=== PATIENT | female | born 1945 | race Caucasian/White ===

== ENCOUNTER 2020-05-23 15:10 | Inpatient (IN) | payer MEDICARE, OTHER ==
[~2020-05-23] VITALS: Ht 165.1 cm; Wt 74.0 kg
[~2020-05-23 15:10] MED LIST: Hair, Skin & N1 EACH PO; IBUP600 PO; LEVSOD75 PO; MAGCHL64ER; Percocet 5-3251 EACH PO; Valium5 MG PO
[2020-05-23 16:24] LABS: Hematocrit 38.5 % (33.0-51.0); Hemoglobin 12.6 g/dL (11.5-16.0); Mean Corpuscular HGB 27.8 pg (26.0-34.0); Mean Corpuscular HGB Conc 32.7 g/dL (31.5-36.5); Mean Corpuscular Volume 85 fL (80-100); Mean Platelet Volume 9.9 fL (9.1-12.4); NRBC ABSOLUTE 0.05 K/mm3 (0.00-0.02); NRBC Auto 0.2 /100 WBC (0.0-0.2); Platelet Count 676 K/mm3 (150-400); RDW Coefficient Variation 16.9 % (11.7-14.2); RDW Standard Deviation 51.9 fL (35.1-46.3); Red Blood Cell Count 4.53 M/mm3 (3.80-5.20); White Blood Cell Count 27.61 K/mm3 (4.00-11.30)
[2020-05-23 16:38] LABS: International Normalized Ratio 1.17; Prothrombin Time Results 12.4 Sec (9.7-11.5)
[2020-05-23 16:54] LABS: Alanine Aminotransfer (ALT/SGP 118 U/L (12-78); Albumin, Blood 3.4 g/dL (3.4-5.0); Albumin/Globulin Ratio 1.3 (0.8-1.8); Alk Phos 63 U/L (50-136); Anion Gap 6 mmol/L (6-16); Aspartate Aminotrans (AST/SGOT 134 U/L (12-37); Bilirubin, Total 0.4 mg/dL (0.1-1.0); Blood Urea Nitrogen 21 mg/dL (8-24); Bun/Creatinine Ratio 22.4 (12.0-20.0); CO2, Blood 25 mmol/L (21-32); Calcium, Blood 8.1 mg/dL (8.5-10.1); Chloride, Blood 106 mmol/L (98-108); Creatinine, Blood 0.94 mg/dL (0.40-1.00); Ethanol (Alcohol), Blood, Med <3 mg/dL; Globulin, Blood 2.7 g/dL (2.2-4.0); Glomerular Filtration Rate >60 (60-); Glucose, Blood 133 mg/dL (70-99); Potassium, Blood 3.7 mmol/L (3.5-5.5); Sodium, Blood 137 mmol/L (136-145); Total Protein, Blood 6.1 g/dL (6.4-8.2)
[2020-05-23 17:21] LABS: BAND PERCENT MAN 9 % (0-8); BASOPHILS ABSOLUTE MAN 0.27 K/mm3 (0.00-0.23); BASOPHILS PERCENT MAN 1 % (0-2); EOSINOPHILS ABSOLUTE MAN 0.27 K/mm3 (0.00-0.68); EOSINOPHILS PERCENT MAN 1 % (0-6); LYMPHOCYTES ABSOLUTE MAN 1.38 K/mm3 (0.84-5.20); LYMPHOCYTES PERCENT MAN 5 % (21-46); METAMYELOCYTE ABSOLUTE MAN 0.27 K/mm3 (0.00-0.00); METAMYELOCYTE PERCENT MAN 1 % (0-0); MONOCYTES PERCENT MAN 4 % (4-13); NEUTROPHILS ABSOLUTE MAN 24.29 K/mm3 (1.96-9.15); SEG NEUTROPHILS PERCENT MAN 79 % (41-73); TOTAL CELLS COUNTED 100
[2020-05-23] MEDS ORDERED: SERT100 PO (17:29)
[2020-05-23] MEDS ORDERED: blood pressure PO (17:30)
[2020-05-23] MEDS ORDERED: LEVSOD100 PO (17:30)
[2020-05-23 23:01] LABS: Source, Urine Clean Catch
[2020-05-23 23:04] LABS: Bilirubin, Urine Neg (Neg); Blood, Urine 1+ (Neg); Glucose Qualitative, Urine Neg (Neg); Ketones, Urine 1+ (Neg); Leukocyte Esterase, Urine 1+ (Neg); Nitrite, Urine Neg (Neg); Protein, Urine 3+ (Neg); Specific Gravity, Urine 1.015 (1.003-1.022); Urobilinogen, Urine NORM (Normal)
[2020-05-23 23:08] LABS: Color, Urine Yellow (P-Yellow)
[2020-05-23 23:14] LABS: Appearance, Urine Clear (Clear); Bacteria Few /hpf; Red Blood Cells, Urine Rare /hpf (0-2); Squamous Epithelial Cells Not Seen /hpf (Few)
[2020-05-23 23:15] LABS: U Amphetamine Screen Not Detected; U Barbituate Screen Not Detected; U Benzodiazapine Screen Not Detected; U Buprenorphine Screen Not Detected; U Cannabinoids Screen Not Detected; U Cocaine Screen Not Detected; U Methadone Screen Not Detected; U Methamphetamine Screen Not Detected; U Opiates Screen DETECTED; U Oxycodone Screen Not Detected; U Phencyclidine Screen Not Detected; U Propoxyphene Screen Not Detected
[2020-05-24 07:48] LABS: BASOPHILS PERCENT AUTO 1 % (0-2); EOSINOPHILS ABSOLUTE AUTO 0.03 K/mm3 (0.00-0.68); EOSINOPHILS PERCENT AUTO 0 % (0-6); Hematocrit 31.9 % (33.0-51.0); Hemoglobin 10.5 g/dL (11.5-16.0); IMMATURE GRAN ABSOLUTE AUTO 0.51 K/mm3 (0.00-0.10); IMMATURE GRAN PERCENT AUTO 2 % (0-1); LYMPHOCYTES ABSOLUTE AUTO 0.99 K/mm3 (0.84-5.20); LYMPHOCYTES PERCENT AUTO 3 % (21-46); MONOCYTES ABSOLUTE AUTO 2.17 K/mm3 (0.16-1.47); MONOCYTES PERCENT AUTO 6 % (4-13); Mean Corpuscular HGB 28.1 pg (26.0-34.0); Mean Corpuscular HGB Conc 32.9 g/dL (31.5-36.5); Mean Corpuscular Volume 85 fL (80-100); NEUTROPHILS ABSOLUTE AUTO 29.87 K/mm3 (1.96-9.15); NEUTROPHILS PERCENT AUTO 88 % (41-73); NRBC ABSOLUTE 0.03 K/mm3 (0.00-0.02); NRBC Auto 0.1 /100 WBC (0.0-0.2); Platelet Count 914 K/mm3 (150-400); RDW Coefficient Variation 17.2 % (11.7-14.2); RDW Standard Deviation 53.7 fL (35.1-46.3); Red Blood Cell Count 3.74 M/mm3 (3.80-5.20); White Blood Cell Count 33.87 K/mm3 (4.00-11.30)
[2020-05-24 07:58] LABS: Bun/Creatinine Ratio 17.6 (12.0-20.0); Calcium, Blood 7.8 mg/dL (8.5-10.1); Creatinine, Blood 1.7 mg/dL (0.40-1.00); Potassium, Blood 5.2 mmol/L (3.5-5.5)
[2020-05-24 08:44] LABS: Albumin, Blood 3.1 g/dL (3.4-5.0); Albumin/Globulin Ratio 1.1 (0.8-1.8); Bilirubin, Direct 0.1 mg/dL (0.0-0.3); Bilirubin, Indirect 0.3 mg/dL (0.1-0.7); Bilirubin, Total 0.4 mg/dL (0.1-1.0); Globulin, Blood 2.7 g/dL (2.2-4.0); Total Protein, Blood 5.8 g/dL (6.4-8.2)
[2020-05-24 13:08] LABS: Hematocrit 27.4 % (33.0-51.0); Hemoglobin 8.8 g/dL (11.5-16.0); Mean Corpuscular HGB 27.4 pg (26.0-34.0); Mean Corpuscular HGB Conc 32.1 g/dL (31.5-36.5); Mean Corpuscular Volume 85 fL (80-100); NRBC ABSOLUTE 0.02 K/mm3 (0.00-0.02); NRBC Auto 0.1 /100 WBC (0.0-0.2); Platelet Count 752 K/mm3 (150-400); RDW Coefficient Variation 17.3 % (11.7-14.2); RDW Standard Deviation 54.1 fL (35.1-46.3); Red Blood Cell Count 3.21 M/mm3 (3.80-5.20); White Blood Cell Count 26.44 K/mm3 (4.00-11.30)
[2020-05-24 13:22] LABS: Bun/Creatinine Ratio 15.8 (12.0-20.0); Calcium, Blood 7.9 mg/dL (8.5-10.1); Creatinine, Blood 2.03 mg/dL (0.40-1.00); Potassium, Blood 4.6 mmol/L (3.5-5.5)
[2020-05-24 15:46] LABS: Influenza A, PCR NEGATIVE (NEGATIVE); Influenza B, PCR NEGATIVE (NEGATIVE); Resp Syncytial Virus, PCR NEGATIVE (NEGATIVE); SARS-Cov-2 (COVID-19) PCR, MMC NEGATIVE (NEGATIVE)
[2020-05-24 16:34] LABS: Source, Urine Catheter
[2020-05-24 16:48] LABS: Appearance, Urine Clear (Clear); Bilirubin, Urine Neg (Neg); Blood, Urine 1+ (Neg); Color, Urine Yellow (P-Yellow); Glucose Qualitative, Urine Neg (Neg); Ketones, Urine Neg (Neg); Leukocyte Esterase, Urine 1+ (Neg); Nitrite, Urine Neg (Neg); Protein, Urine 2+ (Neg); Specific Gravity, Urine 1.015 (1.003-1.022); Urobilinogen, Urine NORM (Normal)
[2020-05-24 16:59] LABS: Hyaline Casts 0-2 /lpf (0-2)
[2020-05-24 17:00] LABS: Bacteria Mod /hpf; Red Blood Cells, Urine 0-2 /hpf (0-2); Squamous Epithelial Cells Few /hpf (Few)
[2020-05-24 21:19] LABS: Hematocrit 28.7 % (33.0-51.0); Hemoglobin 9.5 g/dL (11.5-16.0); Mean Corpuscular HGB 28.1 pg (26.0-34.0); Mean Corpuscular HGB Conc 33.1 g/dL (31.5-36.5); Mean Corpuscular Volume 85 fL (80-100); Mean Platelet Volume 9.7 fL (9.1-12.4); Platelet Count 445 K/mm3 (150-400); RDW Coefficient Variation 16.2 % (11.7-14.2); RDW Standard Deviation 50.5 fL (35.1-46.3); Red Blood Cell Count 3.38 M/mm3 (3.80-5.20)
[2020-05-25 04:05] LABS: Hematocrit 29.1 % (33.0-51.0); Hemoglobin 9.7 g/dL (11.5-16.0); Mean Corpuscular HGB 28.4 pg (26.0-34.0); Mean Corpuscular HGB Conc 33.3 g/dL (31.5-36.5); Mean Corpuscular Volume 85 fL (80-100); Mean Platelet Volume 9.8 fL (9.1-12.4); NRBC ABSOLUTE 0.02 K/mm3 (0.00-0.02); NRBC Auto 0.1 /100 WBC (0.0-0.2); Platelet Count 445 K/mm3 (150-400); RDW Coefficient Variation 16.5 % (11.7-14.2); Red Blood Cell Count 3.41 M/mm3 (3.80-5.20)
[2020-05-25 04:22] LABS: Bun/Creatinine Ratio 23.6 (12.0-20.0); Calcium, Blood 7.8 mg/dL (8.5-10.1); Creatinine, Blood 1.48 mg/dL (0.40-1.00); Magnesium, Blood 2.1 mg/dL (1.6-2.4); Potassium, Blood 3.9 mmol/L (3.5-5.5)
[2020-05-25 09:30] LABS: Hematocrit 27.5 % (33.0-51.0); Hemoglobin 9.1 g/dL (11.5-16.0)
[2020-05-25 10:05] LABS: CPK Creatine Kinase 437 U/L (26-193); Troponin I <0.015 ng/mL (0.000-0.040)
[2020-05-26 05:12] LABS: Alanine Aminotransfer (ALT/SGP 43 U/L (12-78); Albumin, Blood 2.5 g/dL (3.4-5.0); Alk Phos 37 U/L (50-136); Anion Gap 2 mmol/L (6-16); Aspartate Aminotrans (AST/SGOT 39 U/L (12-37); Bilirubin, Total 0.5 mg/dL (0.1-1.0); Blood Urea Nitrogen 13 mg/dL (8-24); CO2, Blood 30 mmol/L (21-32); CPK Creatine Kinase 276 U/L (26-193); Calcium, Blood 7.7 mg/dL (8.5-10.1); Chloride, Blood 110 mmol/L (98-108); Creatinine, Blood 0.81 mg/dL (0.40-1.00); Globulin, Blood 2.5 g/dL (2.2-4.0); Glomerular Filtration Rate >60 (60-); Glucose, Blood 93 mg/dL (70-99); Potassium, Blood 4.4 mmol/L (3.5-5.5); Sodium, Blood 142 mmol/L (136-145)
[2020-05-26 08:13] LABS: Hematocrit 25.1 % (33.0-51.0)
[2020-05-26 16:24] LABS: Hematocrit 27.2 % (33.0-51.0); Hemoglobin 8.7 g/dL (11.5-16.0)
[2020-05-27 05:46] LABS: Hematocrit 27.4 % (33.0-51.0); Hemoglobin 8.8 g/dL (11.5-16.0); Mean Corpuscular HGB 28.3 pg (26.0-34.0); Mean Corpuscular HGB Conc 32.1 g/dL (31.5-36.5); Mean Corpuscular Volume 88 fL (80-100); Mean Platelet Volume 9.8 fL (9.1-12.4); NRBC ABSOLUTE 0.02 K/mm3 (0.00-0.02); NRBC Auto 0.2 /100 WBC (0.0-0.2); Platelet Count 520 K/mm3 (150-400); RDW Coefficient Variation 16.6 % (11.7-14.2); RDW Standard Deviation 53.8 fL (35.1-46.3); Red Blood Cell Count 3.11 M/mm3 (3.80-5.20)
[2020-05-27 06:20] LABS: Anion Gap 4 mmol/L (6-16); Blood Urea Nitrogen 9 mg/dL (8-24); Bun/Creatinine Ratio 11.9 (12.0-20.0); CO2, Blood 30 mmol/L (21-32); Chloride, Blood 107 mmol/L (98-108); Creatinine, Blood 0.76 mg/dL (0.40-1.00); Glomerular Filtration Rate >60 (60-); Glucose, Blood 107 mg/dL (70-99); Potassium, Blood 4.1 mmol/L (3.5-5.5); Sodium, Blood 141 mmol/L (136-145)
[2020-05-28] MEDS ORDERED: OXAYDO5 M1 PO (14:25)
== END 2020-05-28 17:18 | disposition home or self-care (01) | DRG 551 ==
LOC: ER 15:10 → SURS 15:11 → PCU 05-24 09:35 → SURS 05-24 09:36 → PCU 05-24 14:11 → SURS 05-26 12:53
PROVIDERS: Emergency Medicine; Internal Medicine; Nurse Practitioner Acute Care; Student in an Organized Health Care Education/Training Program; Surgery; ADMIT Surgery
DX: S32.019A Unspecified fracture of first lumbar vertebra, initial encounter for closed fracture (principal); R57.8 Other shock; N17.9 Acute kidney failure, unspecified; D62 Acute posthemorrhagic anemia; S22.49XA Multiple fractures of ribs, unspecified side, initial encounter for closed fracture; S42.131A Displaced fracture of coracoid process, right shoulder, initial encounter for closed fracture; S32.029A Unspecified fracture of second lumbar vertebra, initial encounter for closed fracture; I48.91 Unspecified atrial fibrillation; Z20.822 Contact with and (suspected) exposure to COVID-19; I95.9 Hypotension, unspecified; R40.2250 Coma scale, best verbal response, oriented, unspecified time; R40.2360 Coma scale, best motor response, obeys commands, unspecified time; R40.2140 Coma scale, eyes open, spontaneous, unspecified time; I10 Essential (primary) hypertension; E03.9 Hypothyroidism, unspecified; F32.9 Major depressive disorder, single episode, unspecified; V80.010A Animal-rider injured by fall from or being thrown from horse in noncollision accident, initial encounter; Y93.52 Activity, horseback riding; Y92.9 Unspecified place or not applicable
CPT/HCPCS: 0241U; 36415; 36430; 51702; 70450; 71045; 71260; 72125; 72170; 74174; 74177; 80048; 80053; 80076; 81001; 82533; 82550; 82947; 83690; 83735; 83880; 84443; 84484; 85014; 85018; 85025; 85027; 85610; 86850; 86900; 86901; 86923; 87086; 93005; 93010; 93306; 96374; 96375; 96376; 97110; 97116; 97161; 97166; 97530; 97535; 99285-25; A9270; G0378; G0480; J2270; J2405; J7040; J7120; P9016; Q9967

== ENCOUNTER 2021-01-04 08:08 | Day surgery (SDC) | payer MEDICARE, OTHER ==
[~2021-01-04] VITALS: Ht 165.1 cm; Wt 71.7 kg
[~2021-01-04 08:08] MED LIST changes: +LEVSOD100 PO; +OXAYDO5 M1 PO; +SERT100 PO; +blood pressure PO
--- NOTE | 2021-01-04 10:35 | NUR ---
PT TO RECOVERY ROOM POST PROCEDURE. PT DROWSY, BUT EASILY ROUSABLE, ANSWERING QUESTIONS APPROPRIATELY; DENIES PAIN POST PROCEUDRE. MONITOR SR 60'S, B/P 155/81, AFEBRILE, SPO2 98% 2L NC. R IJ SITE NO SWELLING/HEMATOMA, ARIANNA AND TEGADERM DRSG INTACT.
--- NOTE | 2021-01-04 12:45 | NUR ---
PT TOOK LUNCH WITHOUT ISSUE.
--- NOTE | 2021-01-04 13:25 | NUR ---
PT DRESSED SELF WITHOUT OTTONIEL, SITE UNCHANGED; IV REMOVED-CANNULA INTACT.
--- NOTE | 2021-01-04 13:43 | NUR ---
PT RECEIVED DISCHARGE INSTRUCTIONS, MED LIST AND AFTER CARE INSTRUCTIONS; VERBALIZED GOOD UNDERSTANDING. PT'S SISTER COMING TO PICK PT UP. PT OUT TO FRONT OF HOSPITAL VIA W/C TO WAIT FOR SISTER, CONDITION STABLE.
== END 2021-01-04 13:43 | disposition home or self-care (01) ==
LOC: MHTC 08:08
DX: K76.6 Portal hypertension (principal); I10 Essential (primary) hypertension
CPT/HCPCS: 76937; 99152; 99153; C1725; C1769; C1894; J1644; J2250; J3010; J7030; J7050; Q9967